=== PATIENT | female | born 1950 ===

== ENCOUNTER 2018-11-22 13:29 | Emergency (ER) | payer MEDICAID ==
[2018-11-22 14:31] VITALS: RESP 18
--- NOTE | 2018-11-22 15:34 | ED PDOC ---
Arrival/HPI - General Historian: Patient - History of Present Illness Narrative History of Present Illness (Text): 11/22/18 15:30 Patient is a 68-year-old F who is here visiting family from the [place] presents to [facility] Emergency Department for headache, body aches, and fever x5 days. Patient states she started feeling ill on Wednesday, and has been taking Tylenol 1000mg 3 times daily with some relief, but she was concerned that it was not going away so she came in for evaluation. Patient admits to associated nausea, non- productive cough. Patient otherwise denies vomiting, diarrhea, hematemesis, chest pain, shortness of breath, recent trauma, sick contacts, and/or recent travel. Time/Duration: < week Symptom Course: Unchanged Quality: Aching Severity Level: 8 <Omid Hanson - Last Filed: 11/22/18 17:12> <Juan Daniel Guzman - Last Filed: 11/22/18 17:40> - General Chief Complaint: Headache Time Seen by Provider: 11/22/18 14:56 Past Medical History - Provider Review Nursing Documentation Reviewed: Yes - Past History Past History: No Previous - Cardiac Hx Hypertension: Yes - Endocrine/Metabolic Hx Diabetes Mellitus Type 2: Yes - Psychiatric Hx Substance Use: No - Anesthesia Hx Anesthesia: No Hx Anesthesia Reactions: No Hx Malignant Hyperthermia: No <Omid Hanson - Last Filed: 11/22/18 17:12> Family/Social History - Physician Review Nursing Documentation Reviewed: Yes Family/Social History: No Known Family HX Smoking Status: Never Smoked Hx Alcohol Use: No Hx Substance Use: No <Omid Hanson - Last Filed: 11/22/18 17:12> Allergies/Home Meds <Omid Hanson - Last Filed: 11/22/18 17:12> <Juan Daniel Guzman - Last Filed: 11/22/18 17:40> Allergies/Adverse Reactions: Allergies No Known Allergies Allergy (Verified 11/22/18 14:26) Review of Systems - Review of Systems Constitutional: Fevers Eyes: Normal Respiratory: Cough. absent: SOB, Wheezing Cardiovascular: Normal Gastrointestinal: Nausea. absent: Constipation, Diarrhea, Vomiting, Hematemesis Genitourinary Female: Normal Musculoskeletal: Myalgias Skin: Normal Neurological: Headache. absent: Dizziness, Focal Weakness, Gait Changes, Speech Changes, Facial Droop, Disequilibrium, Seizure Endocrine: Normal Hemo/Lymphatic: Normal Psychiatric: Normal <Omid Hanson - Last Filed: 11/22/18 17:12> Physical Exam Vital Signs Reviewed: Yes Vital Signs Temp Pulse Resp BP Pulse Ox 11/22/18 13:31 98.1 F 86 18 123/87 97 Temperature: Afebrile Blood Pressure: Normal Pulse: Regular Respiratory Rate: Normal Appearance: Positive for: Well-Appearing, Non-Toxic, Comfortable Pain Distress: Mild Mental Status: Positive for: Alert and Oriented X 3 - Systems Exam Head: Present: Atraumatic, Normocephalic. No: Tenderness, Contusion, Swelling, Abrasion, Laceration Pupils: Present: PERRL Extroacular Muscles: Present: EOMI Conjunctiva: Present: Normal. No: Injected, Icteric Mouth: Present: Moist Mucous Membranes Neck: Present: Normal Range of Motion Respiratory/Chest: Present: Clear to Auscultation, Good Air Exchange. No: Respiratory Distress, Accessory Muscle Use Cardiovascular: Present: Regular Rate and Rhythm, Normal S1, S2. No: Murmurs Abdomen: Present: Normal Bowel Sounds. No: Tenderness, Distention, Peritoneal Signs Back: Present: Normal Inspection. No: CVA Tenderness Upper Extremity: Present: Normal Inspection. No: Cyanosis, Edema Lower Extremity: Present: NORMAL PULSES. No: Edema, CALF TENDERNESS Neurological: Present: GCS=15, CN II-XII Intact, Speech Normal Skin: Present: Warm, Dry, Normal Color. No: Rashes Psychiatric: Present: Alert, Oriented x 3, Normal Insight, Normal Concentration <Omid Hanson - Last Filed: 11/22/18 17:12> Vital Signs Temp Pulse Resp BP Pulse Ox 11/22/18 13:31 98.1 F 86 18 123/87 97 <Juan Daniel Guzman - Last Filed: 11/22/18 17:40> Medical Decision Making ED Course and Treatment: 11/22/18 15:36 IMPRESSION: Patient is a 68-year-old F who is here visiting family from the [place] presents to [facility] Emergency Department for headache, body aches, and fever x5 days. ASSESSMENT: URI PLAN: - CBC - CMP - CXR - Influenza A/B - Tylenol 650mg PO STAT 11/22/18 15:46 CXR IMPRESSION: No active disease 11/22/18 15:55 CBC: within normal limits; no leukocytosis 11/22/18 16:07 CMP: within normal limits - RAD Interpretation Radiology Orders: 11/22/18 15:27 CHEST PORTABLE [RAD] Stat - Medication Orders Current Medication Orders: Acetaminophen (Tylenol 325mg Tab) 650 mg PO STAT STA Stop: 11/22/18 15:28 <Omid Hanson - Last Filed: 11/22/18 17:12> ED Course and Treatment: 11/22/18 15:40 Seen and examined with the resident. Our history and physical exam reveals a Ivorian-speaking woman complaining of a four-day history of a cough congestion and URI with a headache. No fever or chills. No dyspnea. No sputum production. She does not appear ill. - RAD Interpretation Radiology Orders: 11/22/18 15:27 CHEST PORTABLE [RAD] Stat - Medication Orders Current Medication Orders: Discontinued Medications Acetaminophen (Tylenol 325mg Tab) 650 mg PO STAT STA Stop: 11/22/18 15:28 <Juan Daniel Guzman - Last Filed: 11/22/18 17:40> - PA / HAIR OR BEAUTY [employer]ON ASSISTANT / Resident Statement MD/DO has examined the patient and agrees with the treatment plan. <Juan Daniel Guzman - Last Filed: 11/22/18 17:40> Disposition/Present on Arrival - Present on Arrival Any Indicators Present on Arrival: No History of DVT/PE: No History of Uncontrolled Diabetes: No Urinary Catheter: No History of Decub. Ulcer: No History Surgical Site Infection Following: None <Omid Hanson - Last Filed: 11/22/18 17:12> - Present on Arrival Any Indicators Present on Arrival: No History of DVT/PE: No History of Uncontrolled Diabetes: No Urinary Catheter: No History of Decub. Ulcer: No - Disposition Have Diagnosis and Disposition been Completed?: Yes Disposition Time: 17:08 Patient Plan: Discharge <Juan Daniel Guzman - Last Filed: 11/22/18 17:40> - Disposition Diagnosis: Bronchitis, Upper respiratory infection Disposition: HOME/ ROUTINE Condition: GOOD Discharge Instructions (ExitCare): Viral Upper Respiratory Infection, Adult (DC), Acute Bronchitis Additional Instructions: If your symptoms recur and/or worsen please return to the ED immediately Follow-up with your primary care physician within 3-5 days of discharge from the emergency department Prescriptions: Benzonatate [Tessalon Perles] 100 mg PO Q8 #30 sgl Referrals: PCP,NO [Primary Care Provider] - Follow up with primary Forms: [employer] (Chilean)
--- NOTE | 2018-11-22 15:46 | RAD ---
Date of service: 11/22/2018 HISTORY: cough COMPARISON: No prior. FINDINGS: LUNGS: No active pulmonary disease. PLEURA: No significant pleural effusion identified, no pneumothorax apparent. CARDIOVASCULAR: No aortic atherosclerotic calcification present. Aortic tortuosity Normal cardiac size. No pulmonary vascular congestion. OSSEOUS STRUCTURES: No significant abnormalities. VISUALIZED UPPER ABDOMEN: Normal. OTHER FINDINGS: None. IMPRESSION: No active disease.
[2018-11-22 15:52] LABS: BASO # 0.01 K/mm3 (0.0-2.0); BASO % 0.3 % (0.0-3.0); GRAN # 1.52 (1.4-6.5); GRAN % 39.3 % (50.0-68.0); HEMOGLOBIN 13.4 g/dL (12.0-16.0); LYMPH # 1.9 (1.2-3.4); LYMPH % 50.3 % (22.0-35.0); MEAN CELL VOLUME 93.9 fl (80.0-105.0); MEAN CORPUSCULAR HEMOGLOBIN 30.2 pg (25.0-35.0); MEAN CORPUSCULAR HGB CONC 32.2 g/dl (31.0-37.0); MEAN PLATELET VOLUME 10.2 fl (7.0-11.0); MONO # 0.4 (0.1-0.6); MONO % 9.1 % (1.0-6.0); RBC 4.43 10^6/uL (3.5-6.1); RED CELL DISTRIBUTION WIDTH 14.9 % (11.5-14.5); WHITE BLOOD COUNT 3.9 10^3/uL (4.5-11.0)
[2018-11-22 16:04] LABS: ALB/GLOB RATIO 1.2 (1.1-1.8); ALBUMIN 4.3 g/dL (3.0-4.8); ALT/SGPT 22 U/L (7-56); AST/SGOT 23 U/L (14-36); BLOOD UREA NITROGEN 16 mg/dL (7-21); CALCIUM 9.6 mg/dL (8.4-10.5); GFR NON-AFRICAN AMERICAN > 60
[2018-11-22 16:55] VITALS: BP 132/89; PULSE 78; TEMP 98.2
[2018-11-22 17:35] VITALS: O2SAT 0
== END 2018-11-22 17:33 | disposition home or self-care (01) ==
LOC: ED 13:29
DX: J06.9 Acute upper respiratory infection, unspecified (principal); J40 Bronchitis, not specified as acute or chronic; I10 Essential (primary) hypertension; E11.9 Type 2 diabetes mellitus without complications